=== PATIENT | female | born 1970 | race Caucasian/White ===

== ENCOUNTER 2021-10-09 17:32 | Emergency (ER) | payer OTHER ==
[~2021-10-09 17:32] MED LIST: ANASTROZOLE1 M1 PO; BUSPAR5 MG PO; CLARITIN10 MG PO; COLACE100 MG PO; CYMBALTA 30MG C30 MG PO; PERCOCET 5-3251 EACH PO; TAMOXIFEN CITRA20 MG PO; TRAZODONE HCL50 MG PO
[2021-10-09 19:56] LABS: BASOPHIL 0.7 % (0-2); EOSINOPHIL 0 % (0-5); HCT 31.1 % (37.0-47.0); HGB 10.6 g/dl (12.5-16.0); LYMPHOCYTE 19.7 % (15-48); MCH 35.6 pg (25.0-31.0); MCHC 34.1 g/dL (32.0-36.0); MCV 104.4 fL (78.0-100.0); MONOCYTE 14.1 % (0-12); MPV 10.2 fL (6.0-9.5); NEUTROPHIL 64.1 % (41-80); NRBC 0.3; PLT 209 K/uL (150-400); RBC 2.98 M/uL (4.20-5.40); RDW 15.9 % (11.5-14.0); WBC 5.9 K/uL (4.0-10.5)
[2021-10-09 20:13] LABS: INR 1.15 (0.9-1.2); PROTHROMBIN TIME 14.4 SECONDS (11.9-13.9)
[2021-10-09 20:14] LABS: PTT 31.5 SECONDS (24.9-34.6)
[2021-10-09 20:28] LABS: ALBUMIN 2.1 g/dL (3.4-5.0); BILIRUBIN - TOTAL 0.4 mg/dL (0.2-1.0); BUN/CREAT RATIO (CALC) 17.2 RATIO; C-REACTIVE PROTEIN 16.3 mg/dL (<=0.90); CREATININE 0.58 mg/dL (0.51-0.95); FT4 (FREE T4) 1.3 ng/dL (0.76-1.46); GLOBULIN (CALCULATION) 3.8 g/dL; MAGNESIUM 1.3 mg/dL (1.8-2.4); POTASSIUM 2.8 mmol/L (3.5-5.1); TOTAL PROTEIN 5.9 g/dL (6.4-8.2)
[2021-10-09 20:36] LABS: LACTIC ACID 2.8 mmol/L (0.4-1.9)
[2021-10-09 20:50] LABS: CORONAVIRUS 2019 SARS-COV-2 NEGATIVE (NEGATIVE); INFLUENZA A NAA NEGATIVE (NEGATIVE)
[2021-10-09 22:24] LABS: CLARITY CLEAR (CLEAR); COLOR YELLOW (YELLOW); GLUCOSE (U) TRACE mg/dL (NORMAL); PROTEIN TRACE (LOW) mg/dL (NEGATIVE); pH 6.5 (5.0-9.0)
[2021-10-09 22:25] LABS: BILIRUBIN 1+ mg/dL (NEGATIVE); BLOOD 1+ Ery/uL (NEGATIVE); NITRITE NEGATIVE (NEGATIVE)
[2021-10-09 22:29] LABS: LEUKOCYTES TRACE Leu/uL (NEGATIVE)
[2021-10-09 22:39] LABS: BACTERIA 1+; URIC ACID CRYSTALS MODERATE
[2021-10-10 00:46] LABS: HCT 28.3 % (37.0-47.0); HGB 9.4 g/dL (12.5-16.0)
== END 2021-10-10 05:20 | disposition other institution (70) ==
LOC: FER 17:32
PROVIDERS: Emergency Medicine; Internal Medicine
DX: C22.8 Malignant neoplasm of liver, primary, unspecified as to type (principal); C78.89 Secondary malignant neoplasm of other digestive organs; N13.2 Hydronephrosis with renal and ureteral calculous obstruction; Z20.822 Contact with and (suspected) exposure to COVID-19
CPT/HCPCS: 36415; 80053; 81001; 83605; 83690; 83735; 84145; 84439; 84443; 84484; 85014; 85018; 85025; 85610; 85730; 86140; 87040; 87088; 93005; C9113; J1170; J2405; J2543; J3475; J7030; J7050; Q9967; U0002